=== PATIENT | female | born 2000 | race Caucasian/White ===

== ENCOUNTER 2021-12-05 13:47 | Outpatient (CLI) | payer BC, SELFPAY ==
[2021-12-05 14:24] LABS: Basophils Percent Auto 0.3 % (0.2-1.2); Eosinophils Absolute Auto 0.2 K/mm3 (0-0.3); Eosinophils Percent Auto 1.4 % (0-4.4); Hematocrit 30.6 % (37.0-47.0); Immature Granulocyte Absolute 0.17 K/mm3 (0.00-0.031); Immature Granulocyte Percent A 1.4 % (0-0.5); Lymphocytes Absolute Auto 1.82 K/mm3 (0.9-3.2); Lymphocytes Percent Auto 15.3 % (18.3-44.2); Mean Corpuscular HGB Conc 32.7 g/dl (32-36); Mean Corpuscular Hemoglobin 27.4 pg (26-34); Mean Corpuscular Volume 83.8 fl (80-100); Mean Platelet Volume 9.7 fl (7.4-10.4); Monocytes Absolute Auto 1.1 K/mm3 (0.1-0.6); Monocytes Percent Auto 9.6 % (2.6-8.5); Neutrophils Absolute Auto 8.6 K/mm3 (1.3-6.7); Platelet Count Result 357 k/mm3 (150-375); Red Blood Count 3.65 M/mm3 (4.2-5.4); Red Cell Distribution Width 13.8 % (11.5-14.5); White Blood Count 11.9 K/mm3 (4.5-10.0)
[2021-12-05 14:33] LABS: Alanine Aminotransferase 13 U/L (4-35); Albumin Level 3.6 g/dL (3.5-5.1); Alkaline Phosphatase 146 U/L (38-126); Anion Gap 5 mmol/L (8-16); Aspartate Amino Transferase 21 U/L (14-36); Bilirubin,Total 0.2 mg/dL (0.2-1.3); Blood Urea Nitrogen 6 mg/dL (7-17); Calcium 9.8 mg/dL (8.4-10.2); Carbon Dioxide 22 mmol/L (22-30); Chloride 107 mmol/L (98-107); Estimated Glomerular Filt Rate > 60; Glucose 169 mg/dL (65-110); Lactate Dehydrogenase 279 U/L (313-618); Potassium 3.8 mmol/L (3.4-5.0); Sodium 134 mmol/L (137-145); Uric Acid 4.4 mg/dL (2.5-7.5)
[2021-12-05 14:46] LABS: Total Protein Urine Random 12 mg/dL; Ur Ttl Prot Creatinine Ratio 0.29 mg/mg (0-0.20)
== END 2021-12-05 14:30 | disposition home or self-care (01) ==
LOC: ANHOBOP 13:49 → ANHLDR 13:50
PROVIDERS: Visit Provider Obstetrics & Gynecology
DX: Z34.90 Encounter for supervision of normal pregnancy, unspecified, unspecified trimester (principal)
CPT/HCPCS: 36415; 80053; 82570; 83615; 84156; 84550; 85025; 99199

== ENCOUNTER 2021-12-18 15:20 | Outpatient (CLI) | payer BC, SELFPAY ==
--- NOTE | ~2021-12-18 | US_ITS ---
EXAMINATION: US venous doppler [facility] DATE: 12/18/2021 15:48 INDICATION: Left lower limb swelling TECHNIQUE: Grayscale ultrasound images without and with compression and Doppler ultrasound images of the left lower extremity veins were obtained. COMPARISON: None. FINDINGS: The visualized portions of left common femoral vein, profunda (deep) femoral vein, femoral vein, popl iteal vein, peroneal veins, posterior tibial veins, gastrocnemius vein and greater saphenous vein out flow are patent. IMPRESSION: 1. No deep venous thrombosis in the left lower limb. Reviewed, dictated and finalized at location A. EM DRAWER IN
== END 2021-12-18 15:21 | disposition home or self-care (01) ==
LOC: ANHIMG 15:22
PROVIDERS: Visit Provider Obstetrics & Gynecology
DX: Z34.93 Encounter for supervision of normal pregnancy, unspecified, third trimester (principal); Z3A.37 37 weeks gestation of pregnancy; M79.89 Other specified soft tissue disorders
CPT/HCPCS: 93971

== ENCOUNTER 2021-12-25 11:32 | Outpatient (RCR) | payer BC, SELFPAY ==
[2021-11-27 11:55] VITALS: BP 131/75; PULSE 109
[2021-12-11 12:07] VITALS: BP 135/89; PULSE 104
[2021-12-18 12:05] VITALS: BP 136/87; PULSE 93
[2021-12-25 12:02] VITALS: BP 121/88; PULSE 105
== END 2022-01-20 13:09 | disposition home or self-care (01) ==
LOC: ANHOBOP 11:32
PROVIDERS: Visit Provider Obstetrics & Gynecology
DX: O36.8130 Decreased fetal movements, third trimester, not applicable or unspecified (principal); Z3A.34 34 weeks gestation of pregnancy; Z3A.36 36 weeks gestation of pregnancy; Z3A.37 37 weeks gestation of pregnancy; Z3A.38 38 weeks gestation of pregnancy
CPT/HCPCS: 59025

== ENCOUNTER 2022-01-03 16:00 | Inpatient (IN) | payer BC, SELFPAY ==
[2022-01-03] VITALS (65 sets, daily range): BP systolic 85–153; BP diastolic 39–92; PULSE 85–135; TEMP 37.2–37.6; O2SAT 97–100; BMI 45.6
--- NOTE | 2022-01-03 16:40 | LDADM ---
This patient, Lolly Darby, was admitted to Labor/Delivery/Recovery 107 on 01/03/22 at 16:00. Plans for labor, pain management and were discussed with patient. Patient/family oriented to hospital policies and general routines including ID bracelet, bed and alarms, visiting hours, pain management, procedures, bathroom and other care routines, personal items, smoking policy, room service/diet and guest tray routines, security routines, and visiting hours. Patient/Family are encouraged to report perceived risks to care and to ask questions if they do not understand what they are told or what they should do. See OBIX for further documentation.
[2022-01-03 16:42] LABS: Basophils Percent Auto 0.4 % (0.2-1.2); Eosinophils Absolute Auto 0.1 K/mm3 (0-0.3); Eosinophils Percent Auto 1.2 % (0-4.4); Hematocrit 33.6 % (37.0-47.0); Hemoglobin 10.8 g/dL (12.0-15.0); Immature Granulocyte Absolute 0.08 K/mm3 (0.00-0.031); Immature Granulocyte Percent A 0.7 % (0-0.5); Lymphocytes Absolute Auto 1.72 K/mm3 (0.9-3.2); Lymphocytes Percent Auto 15.6 % (18.3-44.2); Mean Corpuscular HGB Conc 32.1 g/dl (32-36); Mean Corpuscular Hemoglobin 26.7 pg (26-34); Mean Platelet Volume 10.5 fl (7.4-10.4); Monocytes Absolute Auto 1.3 K/mm3 (0.1-0.6); Neutrophils Absolute Auto 7.8 K/mm3 (1.3-6.7); Neutrophils Percent Auto 70.1 % (45.5-73.1); Platelet Count Result 339 k/mm3 (150-375); Red Blood Count 4.05 M/mm3 (4.2-5.4); Red Cell Distribution Width 16.1 % (11.5-14.5); White Blood Count 11.1 K/mm3 (4.5-10.0)
[2022-01-03] MEDS: DINOPROSTONE 10 MG VAG INSERT VAGINAL (17:12)
[2022-01-03 17:34] LABS: HIV 1/2 Ab P24 Ag Result Negative (Negative)
[2022-01-03] MEDS: ACETAMINOPHEN 500 MG TABLET 1000 MG PO (20:08)
[2022-01-03] MEDS: ZOLPIDEM TARTRATE (*CRX) 5 MG TABLET 10 MG PO (20:08)
[2022-01-03] MEDS: fentaNYL CITRATE INJ (*CRX) 100 MCG/2 ML VIAL 50 MCG IV PUSH (22:08)
--- NOTE | 2022-01-03 22:56 | WPDANESEPP ---
Anes - Eval Pre Procedure Procedure: labor epidural Date/Time: 01/03/22 22:56 Surgeon: marcellus Pre Op Diagnosis: IOL Patient Data Age: 21 Gender: F Height: 1.6 m Weight: 117 kg Last Vital Signs Temp 37.2 C 01/03/22 22:00 Pulse 119 H 01/03/22 22:31 BP 129/69 01/03/22 22:31 Pulse Ox 99 01/03/22 22:54 Allergies Allergy/AdvReac Type Severity Reaction Status Date / Time latex Allergy Hives Verified 01/01/22 09:21 Home Medications Medication Instructions Recorded Confirmed Type vitamins-iron fumarate 65 1 tablet PO DAILY 11/06/21 01/03/22 History mg iron-folic acid 1 mg tablet ferrous sulfate 325 mg (65 mg 325 mg PO BID 12/25/21 01/03/22 History iron) tablet Laboratory Tests 01/03/22 01/03/22 01/03/22 16:22 16:22 16:22 WBC 11.1 K/mm3 H K/mm3 (4.5-10.0) RBC 4.05 M/mm3 L M/mm3 (4.2-5.4) Hgb 10.8 g/dL L g/dL (12.0-15.0) Hct 33.6 % L % (37.0-47.0) MCV 83.0 fl fl (80-100) MCH 26.7 pg pg (26-34) MCHC 32.1 g/dl g/dl (32-36) RDW 16.1 % H % (11.5-14.5) Plt Count 339 k/mm3 k/mm3 (150-375) MPV 10.5 fl H fl (7.4-10.4) Immature Gran % (Auto) 0.7 % H % (0-0.5) Neut % (Auto) 70.1 % % (45.5-73.1) Lymph % (Auto) 15.6 % L % (18.3-44.2) Bowie % (Auto) 12.0 % H % (2.6-8.5) Eos % (Auto) 1.2 % % (0-4.4) Baso % (Auto) 0.4 % % (0.2-1.2) Lymph # (Auto) 1.72 K/mm3 K/mm3 (0.9-3.2) Bowie # (Auto) 1.3 K/mm3 H K/mm3 (0.1-0.6) Eos # (Auto) 0.1 K/mm3 K/mm3 (0-0.3) Baso # (Auto) 0.0 K/mm3 K/mm3 (0.0-0.1) Abs Immat Gran (auto) 0.08 K/mm3 H K/mm3 (0.00-0.031) Absolute Neuts (auto) 7.8 K/mm3 H K/mm3 (1.3-6.7) Absolute Nucleated RBC 0.0 K/mm3 K/mm3 (0.0-0.012) Nucleated RBC % 0.0 % % (0.0-0.2) RPR Pending HIV 1&2 Ab/P24 Ag 4thGn Negative (Negative) Blood Type Antibody Screen 01/03/22 16:22 WBC RBC Hgb Hct MCV MCH MCHC RDW Plt Count MPV Immature Gran % (Auto) Neut % (Auto) Lymph % (Auto) Bowie % (Auto) Eos % (Auto) Baso % (Auto) Lymph # (Auto) Bowie # (Auto) Eos # (Auto) Baso # (Auto) Abs Immat Gran (auto) Absolute Neuts (auto) Absolute Nucleated RBC Nucleated RBC % RPR HIV 1&2 Ab/P24 Ag 4thGn Blood Type A Positive Antibody Screen Negative Patient hx anesthesia problems: none Family hx anesthesia problems: none Results Review: All pre-operative results and documents have been reviewed as part of the pre-operative evaluation. [facility] Past Medical History Medical History (Updated 12/18/21 @ 14:16 by Radha Williamson MD) Anxiety and depression Surgical History Surgical History (Updated 11/02/21 @ 10:53 by Radha Mijares) History of plastic surgery liposuction of subcutaneous tissue Family History Family History (Updated 12/05/21 @ 13:25 by Karely Valenzuela RN) Grandparent Myocardial infarction maternal grandmother Cerebrovascular accident maternal grandmother Grandparent Hypertension Liver cancer Social History Social History Smoking status: Never smoker Substance use: current Last use: stopped at 6 months of preg Spiritual care concerns: No Exam Day of Procedure 01/03/22 22:56
[2022-01-03] MEDS: ONDANSETRON INJ 4 MG/2 ML VIAL IV PUSH (23:51)
[2022-01-04] VITALS (193 sets, daily range): BP systolic 96–145; BP diastolic 42–97; PULSE 69–258; RESP 16–18; TEMP 36.6–37.7; O2SAT 94–100
[2022-01-04] MEDS: OXYTOCIN 30 UNITS/NS 500 ML 30 UNITS/500 ML BAG IV CONT (03:15)
[2022-01-04] MEDS: LACTATED RINGERS 1,000 ML 125 ML IV CONT ×3 (03:25→07:58)
[2022-01-04] MEDS: ONDANSETRON INJ 4 MG/2 ML VIAL IV PUSH (07:12)
[2022-01-04 11:17] LABS: Rapid Plasma Reagin Non-Reactive (NonReactive)
--- NOTE | 2022-01-04 14:29 | WPDOBADMIT ---
Obstetrics - Admit Note Admission Note: record reviewed. No pertinent additions to the history and/or any subsequent changes in the physical findings that are not consistent with the expected course of the were found. Additions to the history and/or subsequent changes in the physical findings follow. None.
--- NOTE | 2022-01-04 14:29 | PM.OBPRVD ---
OB - Delivery Note Procedure Induction method: Per Cervidil Protocol Delivery augmentation: Pitocin Delivery monitor: External FHT Route of delivery: Episiotomy description: None Laceration Description: Perineal - 2nd Degree Delivery repair: chromic Specimen: Yes Quantitative Blood Loss (ml): 400 Anesthesia type: Epidural Disposition: Floor Narrative: Patient prepped draped usual manner for this procedure. Maternal expulsive efforts readily delivered vertex over intact perineum with nuchal cord readily noted and reduced x2. Rest of baby was delivered without difficulty cord clamped cut passed off to the pediatric team in attendance due to meconium-stained fluid found at delivery. Placenta delivered spontaneously. Cervix uterus vagina were inspected with second-degree laceration noted. This was approximated using 2-0 chromic running interlocking manner the vaginal tissue approximating the deeper tissue and a subcuticular layer to approximate the perineum. This point seizure was considered terminated the uterus was well contracted and immediate postoperative mother baby were both excellent. [place] Baby Weeks of gestation at delivery: 39 gender: Male Weight (pounds): 8 Weight (ounces): 4 presentation: vertex Placenta delivery description: Spontaneous Cord Vessel Description: 3 Vessels and Nuchal Cord ( Twice) score one minute: 8 score five minutes: 9 AMG Delivery Billing Delivery Delivery: Delivery Charge
[2022-01-04] MEDS: OXYTOCIN 30 UNITS/NS 500 ML 30 UNITS/500 ML BAG 125 UNITS IV CONT (14:52)
[2022-01-04] MEDS: WITCH HAZEL 40 PADS 1 PAD TOPICAL (15:26)
[2022-01-04] MEDS: ACETAMINOPHEN 325 MG TABLET 650 MG PO ×2 (15:26→22:44)
[2022-01-04] MEDS: BENZOCAINE 20% AER SPR (*SP) 56 GM CAN 1 SPRAY TOPICAL (15:26)
[2022-01-04] MEDS: IBUPROFEN 600 MG TABLET PO ×2 (15:30→22:43)
--- NOTE | 2022-01-04 18:27 | OBPPTRN ---
7660-Patient transferred to post room #291 via wheelchair. Support person present. Oriented to unit, room, information board, rooming in, admission packet and security measures. Patient verbalizes understanding.
[2022-01-05 03:40] VITALS: BP 140/76; PULSE 100; RESP 16; TEMP 36.7
[2022-01-05 06:34] LABS: Hematocrit 29.3 % (37.0-47.0); Hemoglobin 9.2 g/dL (12.0-15.0)
--- NOTE | 2022-01-05 07:38 | P.DS_ITS ---
DS: Admitting Diagnosis Discharge Date 01/06/2022 Admitting Diagnosis OB - DS: Summary OB Procedures : None OB Procedures Intrapartum: Spontaneous Vag Delivery OB Procedures: : None Time Spent with Patient Time attestation: Total time spent providing and/or coordinating discharge services: DS: Data Data Completed and Pending Pending studies at discharge: Pending at discharge 01/04/22 14:18 Surgical [PTH] Routine Labs on day of discharge: Labs from last 24 hours 01/05/22 01/03/22 06:14 16:22 Hgb 9.2 L Hct 29.3 L RPR Non-reactive Discharge Plan Discharge Discharging Clinician: Jared Solorzano Patient Disposition: Home, Self-Care Activity: as tolerated Diet: as tolerated Patient Instructions: Antibiotic Form Stand Alone Forms: General Discharge Information Follow-up/Referrals: Jared Solorzano MD [Physician] - 3 Weeks Discharge Medications: New ibuprofen 600 mg Tablet 600 mg PO Q6H PRN (Reason: Cramping) Qty: 30 RF: 0 Continued vit-iron fum-folic ac 65 mg iron- 1 mg tablet 1 tablet PO DAILY RF: 0 ferrous sulfate [FeroSul] 325 mg (65 mg iron) tablet 325 mg PO BID RF: 0 Date of admission: 01/03/22 16:00 Primary Care Provider: PHYSICIAN,INVENTORY CONTROL MANAGER Admitting Provider: Jared Solorzano Attending physician on admission: Jared Solorzano Condition: Stable
[2022-01-05 08:05] VITALS: BP 132/95; PULSE 106; RESP 16; TEMP 36.8; O2SAT 100
[2022-01-05] MEDS: DOCUSATE SODIUM 100 MG CAPSULE PO ×2 (08:11→15:12)
[2022-01-05] MEDS: IBUPROFEN 600 MG TABLET PO ×3 (08:11→21:04)
[2022-01-05] MEDS: ACETAMINOPHEN 325 MG TABLET 650 MG PO ×3 (08:12→21:04)
[2022-01-05 12:03] VITALS: BP 118/79; PULSE 100; RESP 18; TEMP 37.1; O2SAT 99
--- NOTE | 2022-01-05 13:59 | PCCCNOTE ---
Care Coordination Consult: Met with pt. and maternal grandmother today during rounds. Pt. lives at home with maternal grandmother, Beth. This is her first child. FOB is involved. She has all necessary supplies at home for baby including a crib, car seat, clothing, diapers etc. Pt. plans to bottle feed at discharge. resources provided. She plans to sign up for WIC services. Interested in resources to find a PMD provider as well as counseling resources, this was provided to her. Spoke about [facility] in [place] and she reports she will look into it. Pt. denies any other needs.
--- NOTE | 2022-01-05 15:08 | WPDANLDPN2 ---
Anes-Prog Note L&D Date/Time: 01/05/22 15:08 Comfortable throughout: labor and delivery Neuraxial method: epidural Epidural/Spinal procedure site: clean & non-tender Neuro status: Neuro function grossly intact. Cardiovascular status: normal Respiratory status: normal Airway patency: baseline Mental status: baseline Post-Op hydration status: normal Vital Signs: Last Vital Signs Temp 98.8 F 01/05/22 12:03 Pulse 100 01/05/22 12:03 Resp 18 01/05/22 12:03 BP 118/79 01/05/22 12:03 Pulse Ox 99 01/05/22 12:03 Pain score (VAS): 0 I/O: Intake & Output 01/04/22 01/05/22 01/05/22 23:59 07:59 15:59 Output Total 400 Balance -400 Post-procedural complaints: none Patient feedback: Patient satisfied with anesthetic care.
[2022-01-05] MEDS: POLYSACCHARIDE IRON COMPLEX 150 MG CAPSULE PO (15:11)
[2022-01-05 18:50] VITALS: BP 132/73; PULSE 96; RESP 18; TEMP 36.7
[2022-01-05] MEDS: ZOLPIDEM TARTRATE (*CRX) 5 MG TABLET PO (19:02)
[2022-01-06] MEDS: ACETAMINOPHEN 325 MG TABLET 650 MG PO (04:43)
[2022-01-06] MEDS: IBUPROFEN 600 MG TABLET PO ×2 (04:44→12:07)
[2022-01-06 09:17] VITALS: BP 150/95; PULSE 100; RESP 14; TEMP 36.8; O2SAT 100
[2022-01-06] MEDS: DOCUSATE SODIUM 100 MG CAPSULE PO (09:42)
[2022-01-06 10:16] VITALS: BP 137/98
--- NOTE | 2022-01-06 10:39 | P.PNOB_ITS ---
OB - PN: Subj Subjective Date/time seen: 01/06/22 10:39 Patient comments: no complaints and other (no PIH symptoms) baby status: doing well OB - PN: Obj Data Labs CBC & Chem 7: 01/05/22 06:14 OB - PN A/P Assessment and Plan (1) PIH ( induced hypertension): Code(s): O13.9 - Gestational [-induced] hypertension without significant pr oteinuria, unspecified trimester Status: Acute Assessment and Plan: BP's this am 915-150/95; repeat at 10 154/98 Discussed with patient and mother that would need to watch BP's today and if remain elevated may need BP meds. If BP's decreased over today may go home later today. They are considering topher SHIRLEY. Time Spent With Patient Time: Total time spent is greater than 50% in coordination of care (as documented) at patient's floor/unit and/or counseling patient: Exam GI: GI Palp: No abdominal tenderness : Bimanual exam- vagina & uterus: other (Uterus firm, nt @U)
[2022-01-06 12:00] VITALS: BP 147/98
[2022-01-06 14:00] VITALS: BP 149/93
[2022-01-06 16:11] VITALS: BP 136/96
[2022-01-08 09:01] VITALS: BP 136/93; PULSE 88; RESP 20; TEMP 37.1; O2SAT 100
--- NOTE | 2022-01-10 02:08 | PM.OBDSVD ---
DS: Admitting Diagnosis Discharge Date 01/06/22 Admitting Diagnosis OB - DS: Summary OB Procedures : None OB Procedures Intrapartum: Spontaneous Vag Delivery OB Procedures: : None Time Spent with Patient Time attestation: Total time spent providing and/or coordinating discharge services: DS: Data Data Completed and Pending Completed studies during hospitalization: Pending at discharge 01/04/22 14:18 Surgical [PTH] Routine Discharge Plan Discharge Consulting providers: Mariann Inman Discharging Clinician: Jared Solorzano Patient Disposition: Home, Self-Care Activity: as tolerated Diet: as tolerated Discharge Instructions: Education: Continue to monitor blood pressure at home and call the supervisor functional testing doctor if blood pressure is 160/100 or any pre-eclampsia symptoms occur. Follow up blood pressure check Saturday at [facility]. Mom and Baby Guide Given to: Mother Follow-Up: Call your delivering provider's office for an appointment to be seen in: 1 Week Mom and baby should come to [facility] for the follow-up appointment. Appointment Date/Time: January 08, 2022 at 9:00 am What to expect at your follow-up visit: Blood Pressure Check Call [phone] if you are unable to keep your appointment time. BREAST CARE: * Wear a snug supportive bra. Bottle Feeding: * May apply ice packs EPISIOTOMY/PERINEAL CARE: * Until bleeding stops, use your jamar bottle after urinating * Change your pad frequently throughout the day * You may take sitz baths several times a day (fill your bathtub with warm water and soak for 20 minutes.) Do NOT bathe in the water * No tub baths until seen by your physician - You may shower ACTIVITY: * Rest as much as possible. * Do not exercise or lift anything heavier than your baby (such as laundry or other children.) * Avoid stairs or driving as much as possible. * Do not put anything into the vagina. No douching, tampons, or sexual activity until seen by physician. NOTIFY PHYSICIAN IF YOU HAVE ANY QUESTIONS OR IF ANY OF THE FOLLOWING SYMPTOMS OCCUR: * If your episiotomy or incision becomes red, swollen, or more painful than what you have experienced in the hospital. * If your vaginal bleeding becomes foul smelling. * If your vaginal bleeding becomes more heavy than a period or if your bleeding changes from pink to bright red. However, you may pass an occasional walnut-sized clot once or twice for the first week . * If you experience a sharp, shooting pain in you calves. * If you discover a hard, reddened area on your breast or if you experience flu-like symptoms. DIET: * Eat regular, well-balanced meals. * Drink plenty of fluids daily. If , drink to thirst. Stand Alone Forms: General Discharge Information Follow-up/Referrals: Jared Solorzano MD [Physician] - 3 Weeks Discharge Medications: New ibuprofen 600 mg Tablet 600 mg PO Q6H PRN (Reason: Cramping) Qty: 30 RF: 0 Continued vit-iron fum-folic ac 65 mg iron- 1 mg tablet 1 tablet PO DAILY RF: 0 ferrous sulfate [FeroSul] 325 mg (65 mg iron) tablet 325 mg PO BID RF: 0 No Action sertraline [Zoloft] 100 mg tablet 100 mg PO DAILY Qty: 30 RF: 1 Date of admission: 01/03/22 16:00 Primary Care Provider: PHYSICIAN,COMMUNICATIONS DEPARTMENT HEAD Admitting Provider: Jared Solorzano Attending physician on admission: Jared Solorzano Condition: Stable
== END 2022-01-06 17:05 | disposition home or self-care (01) | DRG 560 ==
LOC: ANHLDR 01-04 08:37 → ANHOB2 01-04 16:52
PROVIDERS: Admitting Provider Obstetrics & Gynecology; Visit Provider Obstetrics & Gynecology
DX: O13.4 Gestational [pregnancy-induced] hypertension without significant proteinuria, complicating childbirth (principal); O69.81X0 Labor and delivery complicated by cord around neck, without compression, not applicable or unspecified; Z37.0 Single live birth; Z3A.40 40 weeks gestation of pregnancy; O70.1 Second degree perineal laceration during delivery; O77.0 Labor and delivery complicated by meconium in amniotic fluid; O36.8330 Maternal care for abnormalities of the fetal heart rate or rhythm, third trimester, not applicable or unspecified
CPT/HCPCS: 36415; 85014; 85018; 85025; 86592; 86703; 86850; 86900; 86901; 88307; A9270; G0432; J2405; J2590; J2795; J3010; J7120

== ENCOUNTER 2023-05-10 17:17 | Emergency (ER) | payer BC, SELFPAY ==
--- NOTE | ~2023-05-10 | US_ITS ---
EXAMINATION: US pelvic complete w TV DATE: 05/10/2023 18:55 INDICATION: Evaluate for torsion. Right lower quadrant pain. Comparison:No prior studies for comparison. TECHNIQUE: Multiple transabdominal and endovaginal sonographic images of the pelvis performed. FINDINGS: The uterus measures 8.3 x 4.1 x 5.2 cm. The endometrial complex measures 11 mm. The right ovary measures 3.8 x 2.1 x 2.4 cm and the left ovary measures 3.6 x 2 x 2.7 cm. There are small follicles in each ovary. Normal doppler signal in both ovaries. There is no free fluid in the pelvis. There are no abnormal masses seen on either side. IMPRESSION: 1. Unremarkable pelvic ultrasound. Reviewed, dictated and finalized at location A.
[2023-05-10 17:46] VITALS: BP 138/86; PULSE 89; RESP 16; TEMP 36.7; O2SAT 100
--- NOTE | 2023-05-10 22:45 | PC.NURSE ---
PT HAS DECIDED TO NOT WAIT ANY LONGER. SHE WILL FOLLOW UP WITH PCP AND OB RECOMMENDED.
== END 2023-05-10 22:45 | disposition left against medical advice (07) ==
PROVIDERS: Emergency Provider Physician Assistant
DX: R10.9 Unspecified abdominal pain (principal)
CPT/HCPCS: 76830; 76856; 99199